=== PATIENT | female | born 1985 | race Caucasian/White ===

== ENCOUNTER → 2024-03-20 10:02 | Outpatient (REF) | payer OTHER, SELFPAY | LOC: WDC 10:02 | PROVIDERS: ATTENDING PHYSICIAN Family Medicine | DX: N64.4 Mastodynia (principal); N63.32 Unspecified lump in axillary tail of the left breast | CPT/HCPCS: 76642; 77062; 77066 ==

== ENCOUNTER 2024-04-12 13:11 | Emergency (ER) | payer OTHER, SELFPAY ==
[2024-04-12 13:12] VITALS: BP 137/93
[2024-04-12] MEDS: KEFLEX 500 MG PO (13:43)
--- NOTE | 2024-04-12 13:57 | ED.GENMED ---
History of Present Illness
General
Chief Complaint: Skin Problem
Source: patient
Exam Limitations: none
Time Seen by Provider: 04/12/24 13:18
Nursing documentation reviewed up to this point in time: agreed with
History of Present Illness
History of Present Illness:
38-year-old female without significant past medical history presenting to the emergency department today with concerns of swelling to the left wrist and forearm after being stung by a wasp 2 days ago initially there is some swelling in the general
area mainly at the wrist it is now extending into most of the forearm only on the palmar aspect. She went to urgent care and was sent to the ER with additional concerns denies any fevers chills nausea vomiting or any systemic symptoms. The area is
not painful she describes it is itchy.
Review of Systems
Review of Systems
Allergies reviewed?: Yes
All Other Systems: ROS reviewed and negative except as documented in HPI and ROS
Phy Exam
Physical Exam
Physical Exam:
GENERAL: Alert , in no apparent distress
EYE: pupils equal and reactive
NECK: Supple, no significant adenopathy.
ENT: o/p clr, mmm.
CARDIAC: Regular rate and rhythm .
LUNGS: Clear breath sounds bilaterally, no acute respiratory distress, no wheezes/rales/rhonchi
ABDOMEN: Soft, without focal tenderness, no r/g, no cvat
NEUROLOGICAL: Alert and oriented, no focal neuro deficits
SKIN: Redness and swelling borders are vague no tenderness palpation fluctuance or induration throughout this is an area spanning from her forearm to the area just before the elbow joint only on the anterior aspect the palmar aspect of the forearm.
Warm and dry, skin intact.
MUSCULOSKELETAL: No edema, well perfused.
PSYCH: Normal and appropriate interaction.
Course
Orders/Labs/Results
Orders:
Orders
04/12/24 13:34
Cephalexin Monohydrate [Keflex] 500 mg PO NOW STA
Vital Signs
Initial and Last Documented VS:
Initial Vital Signs
Temp Pulse Resp BP Pulse Ox
98.2 F 109 18 137/93 99
04/12/24 13:12 04/12/24 13:12 04/12/24 13:12 04/12/24 13:12 04/12/24 13:12
Last Documented Vital Signs
Temp Pulse Resp BP Pulse Ox
98.2 F 88 18 126/78 100
04/12/24 13:12 04/12/24 14:12 04/12/24 14:12 04/12/24 14:12 04/12/24 14:12
MDM/Problems Addressed
MDM/Problems Addressed:
38-year-old female presenting to the emergency department today with concerns of swelling and irritation to the left forearm after being stung by a wasp 2 days ago. Ongoing swelling and irritation to the area she is noticed redness and ongoing
itchiness denies pain no fevers no systemic symptoms. Initially was mildly tachycardic but improved into the 80s without specific treatment. Afebrile here. No history of immunosuppression or recent infections. There is no tenderness throughout
the area the margins are vague. Symptoms have seemed more consistent with allergic or inflammatory response to the wasp bite rather than a cellulitis. She was started on antibiotics with the possibility there could be superimposed infection at
this point. She was given very strict return precautions but at this point concerning patient is very well-appearing nontoxic has no evidence of severe illness is stable for outpatient trial of antibiotics. She was vies to use antihistamines but
given strict return precautions for any evidence that there is infection.
*Critical Care Note
Total Time (30-74mins, 75-104mins- exclusive of procedures): Not Applicable
ED Attending Note
-
Portions of this chart may have been created with voice recognition software.� Occasional wrong word or��sound alike� substitutions may have occurred due to the inherent limitations of voice recognition software.
Discharge Plan
Departure
Patient Disposition: Home (Routine Discharge)
Date of Disposition: 04/12/24
Time of Disposition: 13:57
Patient with high blood pressure during this ER visit?: No
Condition: Good
Covid-19: Not Applicable
Discharge Problem:
Left arm swelling
Instructions: Cellulitis (Skin Infection), Adult (DC), Insect Bites and Stings ED
Prescriptions:
New
cephalexin 500 mg capsule
500 mg PO QID 7 Days Qty: 28 0RF
No Action
PNV cmb#95-ferrous fumarate-FA [] 1 EACH tablet
1 ea PO DAILY
acetaminophen 325 MG tablet
650 mg PO Q4HPRN PRN (Reason: mild pain) 0RF
sennosides-docusate sodium 1 TABLET tablet
1 tab PO DAILYPRN PRN (Reason: constipation) 0RF
ibuprofen 600 MG tablet
400 mg PO Q4HPRN PRN (Reason: moderate pain/cramps) 0RF
Referrals:
Ashley Hughes DO [Family Provider] -
Activity Restrictions/Additional Instructions:
You came to the emergency department today with concerns of swelling to your left wrist and forearm. This is likely inflammatory reaction but an infection is possible. Please take Keflex 4 times daily over the next week and you can take Zyrtec 2-3
times daily to help with itchiness and irritation. Immediate return to the emergency department for any systemic symptoms fevers vomiting chills or significant worsening of the redness and swelling. Please also follow-up closely with the primary
care doctor within the next few days for reassessment.
Interventions
Interventions:
*Risk Screen - Suicide Last Done: 04/12/24 13:12
*General Assessment Last Done: 04/12/24 13:12
*Neglect/Abuse Screening Last Done: 04/12/24 13:12
ED- Fall Risk Assessment Last Done: 04/12/24 14:12
*ED COVID-19 Vaccine History Last Done: 04/12/24 14:12
*Nursing Disposition Last Done: 04/12/24 14:12
ED-Skin Assessment Last Done: 04/12/24 14:11
Discharge Date and Time
Discharge Date/Time: 04/12/24 14:13
Print Language: [id number]
[2024-04-12 14:12] VITALS: BP 126/78
== END 2024-04-12 14:13 | disposition home or self-care (01) ==
LOC: EMR 13:11
PROVIDERS: EMERGENCY PHYSICIAN Student in an Organized Health Care Education/Training Program; FAMILY PHYSICIAN Family Medicine
DX: R22.32 Localized swelling, mass and lump, left upper limb (principal)
CPT/HCPCS: 99282

== ENCOUNTER → 2024-07-30 09:23 | Outpatient (REF) | payer OTHER, SELFPAY | LOC: PNTC 09:23 | PROVIDERS: ATTENDING PHYSICIAN Nurse Practitioner Family | DX: O36.80X0 Pregnancy with inconclusive fetal viability, not applicable or unspecified (principal) | CPT/HCPCS: 76801; 76817 ==

== ENCOUNTER → 2024-12-03 13:31 | Outpatient (REF) | payer OTHER, SELFPAY | LOC: PNTC 13:31 | PROVIDERS: ATTENDING PHYSICIAN Obstetrics & Gynecology | DX: Z36.0 Encounter for antenatal screening for chromosomal anomalies (principal) | CPT/HCPCS: 36415; 76801; 76813 ==

== ENCOUNTER → 2025-01-19 08:45 | Outpatient (REF) | payer OTHER, SELFPAY | LOC: PNTC 08:45 | PROVIDERS: ATTENDING PHYSICIAN Obstetrics & Gynecology | DX: O09.529 Supervision of elderly multigravida, unspecified trimester (principal) | CPT/HCPCS: 76811; 76817 ==

== ENCOUNTER → 2025-03-04 09:46 | Outpatient (REF) | payer OTHER, SELFPAY | LOC: PNTC 09:46 | PROVIDERS: ATTENDING PHYSICIAN Obstetrics & Gynecology | DX: O09.522 Supervision of elderly multigravida, second trimester (principal) | CPT/HCPCS: 76816 ==

== ENCOUNTER → 2025-04-22 08:55 | Outpatient (REF) | payer OTHER, SELFPAY | LOC: PNTC 08:55 | PROVIDERS: ATTENDING PHYSICIAN Obstetrics & Gynecology | DX: O09.529 Supervision of elderly multigravida, unspecified trimester (principal) | CPT/HCPCS: 76816 ==

== ENCOUNTER → 2025-05-18 14:00 | Outpatient (REF) | payer OTHER, SELFPAY | LOC: PNTC 14:00 | PROVIDERS: ATTENDING PHYSICIAN Obstetrics & Gynecology | DX: O36.63X0 Maternal care for excessive fetal growth, third trimester, not applicable or unspecified (principal) | CPT/HCPCS: 76816 ==

== ENCOUNTER 2025-06-09 07:16 | Inpatient (IN) | payer OTHER, SELFPAY ==
[2025-06-09 07:42] VITALS: BP 114/77; BMI 28.3
[2025-06-09] MEDS: LR 1000 IV ×2 (08:08→14:00)
[2025-06-09] MEDS: PENICILLIN 110 UNITS IV (08:09)
[2025-06-09 08:28] LABS: Hematocrit 35.1 % (37.0-47.0); Hemoglobin 12.3 g/dL (12.0-16.0); Mean Corp Hgb Conc. 35.0 g/dL (33.0-37.0); Mean Corpuscular Volume 88.4 fL (81.0-99.0); Nucleated Red Blood Cells % 0 %; Platelet Count 239 10^3/uL (130-400); Red Cell Dist. Width 13.2 % (11.5-14.5)
[2025-06-09] MEDS: DIFLUCAN 150 MG PO (09:49)
[2025-06-09] MEDS: CYTOTEC 50 MICROGRAM PO (09:49)
[2025-06-09] MEDS: PENICILLIN 55 UNITS IV ×3 (12:00→19:27)
[2025-06-09] MEDS: PITOCIN 30 UNITS/NSS 500 ML IV ×2 (17:59→23:09)
[2025-06-09] MEDS: XYLOCAINE-MPF 1% VIAL 30 ML INFIL (22:44)
[2025-06-09] MEDS: MOTRIN 600 MG PO (23:35)
[2025-06-09] MEDS: TYLENOL 650 MG PO (23:35)
[2025-06-10] MEDS: TYLENOL 650 MG PO (05:29)
[2025-06-10] MEDS: MOTRIN 600 MG PO ×3 (05:29→20:45)
[2025-06-10 05:47] LABS: Hematocrit 30.3 % (37.0-47.0); Hemoglobin 10.7 g/dL (12.0-16.0)
[2025-06-10] MEDS: COLACE 100 MG PO ×2 (08:26→19:42)
[2025-06-10] MEDS: PRENATAL PLUS 1 TABLET PO (08:26)
[2025-06-11] MEDS: MOTRIN 600 MG PO (05:22)
[2025-06-11] MEDS: PRENATAL PLUS 1 TABLET PO (07:55)
[2025-06-11] MEDS: FEOSOL 325 MG PO (07:55)
[2025-06-11] MEDS: COLACE 100 MG PO (07:55)
[2025-06-11 13:43] LABS: Syphilis/T. pallidum Ab Reflex Negative (Negative)
== END 2025-06-11 12:48 | disposition home or self-care (01) | DRG 807 ==
LOC: LDRP 07:16
PROVIDERS: Obstetrics & Gynecology; ADMITTING PHYSICIAN Obstetrics & Gynecology
PROC: 0KQM0ZZ Repair Perineum Muscle, Open Approach (ICD-10-PCS; 2025-06-09)
PROC: 10E0XZZ Delivery of Products of Conception, External Approach (ICD-10-PCS; 2025-06-09)
PROC: 10907ZC Drainage of Amniotic Fluid, Therapeutic from Products of Conception, Via Natural or Artificial Opening (ICD-10-PCS; 2025-06-09)
PROC: 3E0DXGC Introduction of Other Therapeutic Substance into Mouth and Pharynx, External Approach (ICD-10-PCS; 2025-06-09)
DX: O48.0 Post-term pregnancy (principal); Z37.0 Single live birth; Z3A.40 40 weeks gestation of pregnancy; O70.1 Second degree perineal laceration during delivery; O76 Abnormality in fetal heart rate and rhythm complicating labor and delivery; O77.0 Labor and delivery complicated by meconium in amniotic fluid; O69.81X0 Labor and delivery complicated by cord around neck, without compression, not applicable or unspecified; O99.824 Streptococcus B carrier state complicating childbirth; Z80.3 Family history of malignant neoplasm of breast; Z80.0 Family history of malignant neoplasm of digestive organs; Z80.42 Family history of malignant neoplasm of prostate; Z82.0 Family history of epilepsy and other diseases of the nervous system
CPT/HCPCS: 36415; 85014; 85018; 85025; 86780; 86850; 86900; 86901